=== PATIENT | female | born 1965 | race Caucasian/White ===

== ENCOUNTER 2023-02-20 15:38 | Emergency (ER) | payer OTHER ==
[~2023-02-20] VITALS: Wt 99.8 kg
[2023-02-20 20:41] LABS: BASO # 0.1 10*3/uL (0.0-0.1); BASO % 0.4 % (0.0-1.0); EOS % 0.2 % (1.0-4.0); HEMATOCRIT 51.9 % (37.0-47.0); LYMPH # 1.3 10*3/uL (1.3-4.4); LYMPH % 9.2 % (27.0-41.0); MEAN CELL VOLUME 89.9 fl (81.0-99.0); MEAN CORPUSCULAR HGB 29.5 pg (27.0-31.0); MEAN CORPUSCULAR HGB CONC 32.8 g/dl (33.0-37.0); MEAN PLATELET VOLUME 9.5 fl (9.6-12.3); MONO % 7.5 % (3.0-9.0); NEUT # 11.3 10*3/uL (2.3-7.9); NEUT % 82.3 % (47.0-73.0); PLATELET COUNT AUTOMATED 263 10*3/uL (130-400); RED BLOOD COUNT 5.77 10*6/uL (4.10-5.10); RED CELL DISTRI WIDTH 13.2 % (0-14.5); WHITE BLOOD COUNT 13.8 10*3/uL (4.8-10.8)
[2023-02-20 20:58] LABS: ALKALINE PHOSPHATASE 116 U/L (46-116); BUN 10 mg/dl (9-23); CHLORIDE 100 mmol/L (98-107); SGPT/ALT 12 U/L (10-49); TOTAL PROTEIN 8.2 gm/dL (6.0-8.0)
== END 2023-02-20 23:30 | disposition short-term general hospital (02) ==
LOC: ED 15:38
PROVIDERS: Physician Assistant
DX: J02.0 Streptococcal pharyngitis (principal); R13.10 Dysphagia, unspecified; R49.0 Dysphonia; J39.2 Other diseases of pharynx; Z91.040 Latex allergy status

== ENCOUNTER → 2023-04-20 | Outpatient (CLI) | payer OTHER ==
[2023-04-20 10:26] LABS: ALKALINE PHOSPHATASE 94 U/L (46-116); BUN 13 mg/dl (9-23); CHLORIDE 104 mmol/L (98-107); CHOLESTEROL 156 mg/dL (<200); LDL CHOLESTEROL 76 mg/dL (9-159); POTASSIUM 4.7 mmol/L (3.4-5.1); SGPT/ALT 14 U/L (10-49); TOTAL PROTEIN 7.5 gm/dL (6.0-8.0); TRIGLYCERIDES 178 mg/dl (<150)
== END | disposition home or self-care (01) ==
LOC: LAB 09:15
PROVIDERS: ATTEND Family Medicine
DX: Z13.220 Encounter for screening for lipoid disorders (principal); Z00.00 Encounter for general adult medical examination without abnormal findings

== ENCOUNTER → 2023-11-30 | Outpatient (CLI) | payer OTHER ==
[2023-11-30 10:50] LABS: ALKALINE PHOSPHATASE 84 U/L (46-116); BUN 17 mg/dl (9-23); CHLORIDE 107 mmol/L (98-107); POTASSIUM 4.5 mmol/L (3.4-5.1); SGPT/ALT 13 U/L (5-49); TOTAL PROTEIN 7.6 gm/dL (6.0-8.0)
== END | disposition home or self-care (01) ==
LOC: LAB 09:51
PROVIDERS: ATTEND Family Medicine
DX: Z11.59 Encounter for screening for other viral diseases (principal); E11.69 Type 2 diabetes mellitus with other specified complication; E66.9 Obesity, unspecified